=== PATIENT | male | born 1970 | race Caucasian/White ===

== ENCOUNTER 2022-10-31 07:13 | Emergency (ER) | payer BC ==
[2022-10-31] MEDS ORDERED: Sodium Chloride 0.9% 10 ML Syringe FLUSH PRN (07:55)
[2022-10-31] MEDS ORDERED: Iopamidol 612 MG/ML 100 ML Bottle IVPUSH ONE (07:55)
[2022-10-31] MEDS ORDERED: Sodium Chloride 0.9% 1,000 ML IV SCH (08:00)
[2022-10-31 08:31] LABS: HEMATOCRIT 38.7 % (40.1-51.0); MEAN CORPUSCULAR HGB CONC 33.6 g/dl (32.2-35.5); MEAN CORPUSCULAR VOLUME 89.2 fl (79.0-92.2); MEAN PLATELET VOLUME 8.9 fl (9.4-12.3); PLATELET COUNT,PLT 281 K/mm3 (163-337); RED BLOOD CELL COUNT 4.34 M/mm3 (4.63-6.08); WHITE BLOOD CELL COUNT,WBC 7.56 K/mm3 (4.23-9.07)
[2022-10-31 08:59] LABS: ALBUMIN 3.8 g/dl (3.4-5.0); ANION GAP 11.4 (5-15); BILIRUBIN TOTAL 0.6 mg/dL (0.2-1.0); BUN/CREATININE RATIO 12.7 (14-18); CALCIUM 9.1 mg/dL (8.5-10.1); CREATININE 1.1 mg/dL (0.7-1.3); EST CRCL DRUG DOSING (CG) 89.16 mL/min; POTASSIUM,K 4.4 mEq/L (3.5-5.1); PROTEIN TOTAL,TP 7.7 g/dl (6.4-8.2)
[2022-10-31 09:31] LABS: BAND PERCENT MAN 0 % (0-10); BASOPHILS PERCENT MAN 0 (0.2-1.2); EOSINOPHILS PERCENT MAN 3 % (0.8-7.0); LYMPHOCYTES % ATYPICAL MANUAL 0 %; LYMPHOCYTES PERCENT MAN 23 % (20-40); MONOCYTES PERCENT MAN 4 % (2-10)
[2022-10-31 09:32] LABS: PLATELET COUNT ESTIMATE ADEQUATE
== END 2022-10-31 09:50 | disposition home or self-care (01) ==
LOC: JD.ED 07:13
DX: K63.89 Other specified diseases of intestine (principal); I10 Essential (primary) hypertension; E66.9 Obesity, unspecified; Z79.899 Other long term (current) drug therapy; Z68.34 Body mass index [BMI] 34.0-34.9, adult
CPT/HCPCS: 36415; 74177; 80053; 83690; 85007; 85027; 99284; J3490; J7030; Q9967